=== PATIENT | female | born 1960 | race Caucasian/White ===

== ENCOUNTER → 2016-12-05 | Outpatient (CLI) | payer OTHER ==
[2016-12-05 08:55] LABS: Cholesterol 231 mg/dL (<200); HDL Cholesterol 56 mg/dL (40-60); Triglycerides 128 mg/dL (<150)
== END | disposition home or self-care (01) ==
LOC: LABWHC1 08:13
PROVIDERS: ATTEND Internal Medicine
DX: E78.4 Other hyperlipidemia (principal)
CPT/HCPCS: 36415; 80061

== ENCOUNTER → 2017-06-21 | Outpatient (CLI) | payer OTHER ==
[2017-06-21 09:28] LABS: CH 29.4; HCT 42.9 % (34.0-46.0); HDW 2.19; HGB 13.9 gm/dL (11.4-16.0); MCH 29.9 pg (25.0-35.0); MCHC 32.3 g/dL (31.0-37.0); MCV 92.4 fL (80.0-100.0); Mean Platelet Volume 7.5; RBC 4.64 m/uL (3.80-5.40); RDW 13.9 % (11.5-15.5); WBC 6.4 k/uL (3.8-10.6)
[2017-06-21 09:36] LABS: ALT 38 U/L (9-52); AST 20 U/L (14-36); Alkaline Phosphatase 84 U/L (38-126); Anion Gap 9 mmol/L; Blood Urea Nitrogen 16 mg/dL (7-17); Calcium 9.3 mg/dL (8.4-10.2); Carbon Dioxide 29 mmol/L (22-30); Chloride 106 mmol/L (98-107); Cholesterol 213 mg/dL (<200); Glucose 82 mg/dL (74-99); HDL Cholesterol 50 mg/dL (40-60); Non-African American GFR(MDRD) >60 (>60 ml/min/1.73 sqM); Potassium 4.5 mmol/L (3.5-5.1); Sodium 144 mmol/L (137-145); Total Bilirubin 0.4 mg/dL (0.2-1.3); Total Protein 6.7 g/dL (6.3-8.2); Triglycerides 103 mg/dL (<150)
== END | disposition home or self-care (01) ==
LOC: LABWHC1 08:38
PROVIDERS: ATTEND Internal Medicine
DX: E78.4 Other hyperlipidemia (principal); E87.8 Other disorders of electrolyte and fluid balance, not elsewhere classified; R53.83 Other fatigue
CPT/HCPCS: 36415; 80053; 80061; 85027

== ENCOUNTER → 2017-09-29 | Outpatient (CLI) | payer OTHER ==
--- NOTE | 2017-09-29 16:06 | BD ---
EXAMINATION TYPE: MG DEXA axial skeleton. DATE OF EXAM: 09/29/2017 COMPARISON: NONE CLINICAL HISTORY: post menopausal Height: 5'4 Weight: 138 FRAX RISK QUESTIONS: Alcohol (3 or more units per day): no Family History (Parent hip fracture): no Glucocorticoids (More than 3mos): no (Ex: prednisone, prednisolone, methylprednisolone, dexamethasone, and hydrocortisone). History of Fracture in Adulthood: no Secondary Osteoporosis: 1. Type 1 Diabetes: no 2. Hyperthyroidism: no 3. Menopause before 45: no 4. Malnutrition: no 5. Chronic liver disease: no Rheumatoid Arthritis: no Current Tobacco Use: no RISK FACTORS HISTORY OF: Family History of Osteoporosis: Postmenopausal woman: MEDICATIONS: Additional Medications: xanax, Additional History: EXAM MEASUREMENTS: Bone mineral densitometry was performed using the [employer] System. Bone mineral density as measured about the Lumbar spine is: ----- L1-L4(G/cm2): 1.177 T Score Values are as follows: ----- L2: 0.0 ----- L3: 0.4 ----- L4: -0.3 ----- L1-L4: 0.0 Bone mineral density about the R hip (g/cm2): 0.813 Bone mineral density about the L hip (g/cm2): 0.828 T Score values are as follows: -----R Neck: -1.6 -----L Neck: -1.5 -----R Total: -0.6 -----L Total: -0.3 IMPRESSION: Osteopenia (T Score between -2.5 and -1) as noted by T score values: Rangel Hips There is slightly increased risk of fracture and the patient may be considered for treatment. Re-Screen 2-5 years. NOTE: T-SCORE=SD OF THE YOUNG ADULT MEAN.
--- NOTE | 2017-09-30 10:29 | MM ---
Reason for exam: screening (asymptomatic). Last mammogram was performed 2 years and 1 month ago. History: Patient is postmenopausal. Physical Findings: A clinical breast exam by your physician is recommended on an annual basis and results should be correlated with mammographic findings. MG Screening Mammo w CAD Bilateral CC and MLO view(s) were taken. Prior study comparison: September 10, 2015, bilateral MG screening mammo w CAD. September 02, 2009, bilateral screening mammogram free. There are scattered fibroglandular densities. Developing asymmetry in the right breast, questionably 2 sites. This finding is changed when compared with previous exams. ASSESSMENT: Incomplete: need additional imaging evaluation, BI-RAD 0 RECOMMENDATION: Special view mammogram of the right breast. If lesion persists on supplemental views, image directed ultrasound is recommended. [facility] will attempt to contact patient to return for supplemental views and ultrasound if indicated.
== END | disposition home or self-care (01) ==
LOC: RADMAMWWP 15:04
PROVIDERS: ATTEND Internal Medicine
DX: Z12.31 Encounter for screening mammogram for malignant neoplasm of breast (principal); M85.89 Other specified disorders of bone density and structure, multiple sites; Z78.0 Asymptomatic menopausal state
CPT/HCPCS: 77080; G0202

== ENCOUNTER → 2017-10-05 | Outpatient (CLI) | payer OTHER ==
--- NOTE | 2017-10-05 10:32 | MM ---
Reason for exam: additional evaluation requested from abnormal screening. Last mammogram was performed less than 1 month ago. History: Patient is postmenopausal. MG 3D Work Up W/Cad RT Spot compression CC, spot compression MLO, and ML view(s) were taken of the right breast. Prior study comparison: September 29, 2017, bilateral MG screening mammo w CAD. September 10, 2015, bilateral MG screening mammo w CAD. No distinct lesion persists on additional views. These results were verbally communicated with the patient and result sheet given to the patient on 10/05/17. ASSESSMENT: Benign, BI-RAD 2 RECOMMENDATION: Return to routine screening mammogram schedule for both breasts.
== END | disposition home or self-care (01) ==
LOC: RADMAMWWP 09:02
PROVIDERS: ATTEND Internal Medicine
DX: R92.8 Other abnormal and inconclusive findings on diagnostic imaging of breast (principal); Z85.3 Personal history of malignant neoplasm of breast; Z80.3 Family history of malignant neoplasm of breast
CPT/HCPCS: G0206; G0279

== ENCOUNTER → 2018-07-16 | Outpatient (CLI) | payer OTHER ==
[2018-07-16 09:58] LABS: HCT 43.6 % (34.0-46.0); HGB 13.8 gm/dL (11.4-16.0); MCHC 31.7 g/dL (31.0-37.0); MCV 91.4 fL (80.0-100.0); Mean Platelet Volume 7.1; Platelet Count 322 k/uL (150-450); RBC 4.77 m/uL (3.80-5.40); RDW 13.7 % (11.5-15.5); WBC 6.5 k/uL (3.8-10.6)
[2018-07-16 10:07] LABS: ALT 36 U/L (9-52); AST 24 U/L (14-36); Alkaline Phosphatase 78 U/L (38-126); Anion Gap 6 mmol/L; Blood Urea Nitrogen 14 mg/dL (7-17); Calcium 9.3 mg/dL (8.4-10.2); Carbon Dioxide 30 mmol/L (22-30); Chloride 106 mmol/L (98-107); Cholesterol 212 mg/dL (<200); Glucose 85 mg/dL (74-99); HDL Cholesterol 48 mg/dL (40-60); LDL Cholesterol,Calculated 143 mg/dL (0-99); Potassium 4.3 mmol/L (3.5-5.1); Sodium 142 mmol/L (137-145); Total Bilirubin 0.5 mg/dL (0.2-1.3); Total Protein 6.7 g/dL (6.3-8.2); Triglycerides 104 mg/dL (<150)
== END | disposition home or self-care (01) ==
LOC: LABWHC1 09:33
PROVIDERS: ATTEND Internal Medicine
DX: E87.8 Other disorders of electrolyte and fluid balance, not elsewhere classified (principal); E78.4 Other hyperlipidemia; R53.83 Other fatigue
CPT/HCPCS: 36415; 80053; 80061; 85027

== ENCOUNTER → 2018-12-17 | Outpatient (CLI) | payer OTHER | END | disposition home or self-care (01) | LOC: LABWHC1 09:59 | PROVIDERS: ATTEND Internal Medicine | DX: E78.2 Mixed hyperlipidemia (principal) | CPT/HCPCS: 36415; 80061 ==

== ENCOUNTER → 2019-06-30 | Outpatient (CLI) | payer OTHER ==
--- NOTE | 2019-07-03 10:14 | MM ---
Reason for exam: screening (asymptomatic). Last mammogram was performed 1 year and 9 months ago. History: Patient is postmenopausal. Physical Findings: A clinical breast exam by your physician is recommended on an annual basis and results should be correlated with mammographic findings. MG Screening Mammo w CAD Bilateral CC and MLO view(s) were taken. Prior study comparison: October 05, 2017, right breast MG 3d work up w/cad RT. September 29, 2017, bilateral MG screening mammo w CAD. The breast tissue is heterogeneously dense. This may lower the sensitivity of mammography. There is no discrete abnormality. No significant changes when compared with prior studies. ASSESSMENT: Negative, BI-RAD 1 RECOMMENDATION: Routine screening mammogram of both breasts in 1 year.
== END | disposition home or self-care (01) ==
LOC: RADMAMWWP 16:09
PROVIDERS: ATTEND Internal Medicine
DX: Z12.31 Encounter for screening mammogram for malignant neoplasm of breast (principal)
CPT/HCPCS: 77067

== ENCOUNTER → 2020-03-27 | Outpatient (CLI) | payer OTHER | END | disposition home or self-care (01) | LOC: LABWHC1 12:33 | PROVIDERS: ATTEND Family Medicine | DX: Z20.828 Contact with and (suspected) exposure to other viral communicable diseases (principal) | CPT/HCPCS: 87635 ==

== ENCOUNTER → 2022-09-09 | Outpatient (CLI) | payer OTHER ==
--- NOTE | 2022-09-10 08:38 | MM ---
Reason for Exam: Screening (asymptomatic). Last mammogram was performed 3 year(s) and 2 month(s) ago. Patient History: Menarche at age 12. First Full-Term at age 22. Postmenopausal. Risk Values: Vianey 5 year model risk: 1.4%. NCI Lifetime model risk: 6.2%. Prior Study Comparison: 09/29/2017 Bilateral Screening Mammogram, [facility]. 10/05/2017 Right Diagnostic Mammogram, [facility]. 06/30/2019 Bilateral Screening Mammogram, [facility]. Tissue Density: The breast tissue is heterogeneously dense. This may lower the sensitivity of mammography. Findings: Analyzed By CAD. There is no suspicious group of microcalcifications or new suspicious mass in either breast. No significant change from prior examinations. Overall Assessment: Negative, BI-RAD 1 Management: Screening Mammogram of both breasts in 1 year. A clinical breast exam by your physician is recommended on an annual basis and results should be correlated with mammographic findings. Electronically signed and approved by: Joaquim Begum D.O.
== END | disposition home or self-care (01) ==
LOC: RADMAMWWP 14:31
PROVIDERS: ATTEND Family Medicine
DX: Z12.31 Encounter for screening mammogram for malignant neoplasm of breast (principal); Z78.0 Asymptomatic menopausal state
CPT/HCPCS: 77063; 77067

== ENCOUNTER 2023-10-08 09:10 | Day surgery (SDC) | payer OTHER ==
[2023-10-06 09:44] VITALS: BMI 23.3
[~2023-10-08 09:10] MED LIST: LACTATED RINGERS 1,000 ML IV SCH; LIDOCAINE 1% (10MG/ML) FOR IV START INTRADERMA PRN
[2023-10-08 10:02] VITALS: TEMP 98.3
[2023-10-08] MEDS ORDERED: PROPOFOL 10 MG/ML 20 ML VIAL IV ONE (11:09)
--- NOTE | 2023-10-08 11:21 | P.PCN ---
Date of Procedure: 10/08/23 Procedure(s) Performed: BRIEF HISTORY: Patient is a 62-year-old pleasant female scheduled for an elective colonoscopy as a part of screening for colon cancer. PROCEDURE PERFORMED: Colonoscopy with biopsy and snare polypectomy. PREOPERATIVE DIAGNOSIS: Screening for colon cancer. IV sedation per Anesthesia. PROCEDURE: After informed consent was obtained, the patient, was brought into the endoscopy unit. IV sedation was administered by Anesthesia under continuous monitoring. Digital rectal examination was normal. Initially the Olympus CF-160 flexible video colonoscope was then inserted in the rectum, gradually advanced into the cecum without any difficulty. Careful examination was performed as the scope was gradually being withdrawn. Ileocecal valve and the appendiceal orifice were visualized and appeared normal. Prep was excellent. Mucosa of the cecum, appeared normal. In the ascending colon there was a 3 mm sessile polyp removed by cold biopsy. Rest of the ascending colon, transverse colon, descending colon, appeared normal. Scattered sigmoid diverticula seen. In the distal sigm oid colon at 30 cm from the anal was there was a 7 mm polyp that was removed by snare polypectomy. Rest of the sigmoid colon, and rectum appeared normal. Retroflexion was performed in the rectum and no lesions were seen. The patient tolerated the procedure well. IMPRESSION: 3 mm ascending colon polyp status post cold biopsy 7 mm; sigmoid polyp status post polypectomy Scattered sigmoid diverticulosis RECOMMENDATIONS: Findings of this examination were discussed with the patient as well as a family.. She was advised to follow with the biopsy results. If the biopsy results adenoma she can have a repeat colonoscopy in 5 years.
[2023-10-08 11:48] VITALS: BP 133/80; PULSE 74; RESP 18
== END 2023-10-08 12:11 | disposition home or self-care (01) ==
LOC: ORWHC2ENDO 09:10
PROVIDERS: ATTEND Internal Medicine Gastroenterology
DX: Z12.11 Encounter for screening for malignant neoplasm of colon (principal); K63.5 Polyp of colon; K57.30 Diverticulosis of large intestine without perforation or abscess without bleeding; E78.5 Hyperlipidemia, unspecified; Z79.899 Other long term (current) drug therapy
CPT/HCPCS: 88305; 45380; 45385; J2704

== ENCOUNTER → 2024-05-03 | Outpatient (CLI) | payer OTHER ==
--- NOTE | 2024-05-03 18:03 | MR ---
EXAMINATION TYPE: MR shoulder RT wo con DATE OF EXAM: 05/03/2024 COMPARISON: None. HISTORY: Right shoulder pain with difficulty raising arm overhead for 1.5 years. TECHNIQUE: Multiplanar, multisequence imaging of the right shoulder is performed without contrast. FINDINGS: Rotator Cuff: Marked increased signal in the supraspinatus tendon beginning in the distal muscle bulk becoming more prominent distally. There is focal full-thickness tear at articular surface measuring 13 mm AP diameter sagittal image 6 x 4 mm transversely coronal image 12. Infraspinatus tendon is inta ct. Heterogeneity of the subscapularis tendon with surrounding fluid. Rotator cuff muscle bulk is pre served. Acromioclavicular Joint: Mild to moderate narrowing and spurring at the acromioclavicular joint. Ther e is loss of the underlying fat plane. Glenohumeral Joint: Moderate size joint effusion. No significant spurring. Narrowing is present great est inferiorly. Labrum: Blunted appearance to superior labrum with abnormal signal consistent with tear. Biceps Tendon: The long head of biceps is in normal location within bicipital groove. Intracapsular p ortion not well seen. Increased signal is present. Labral attachment is preserved. Bone marrow signal: Subchondral cystic change anteriorly. Other: No additional significant abnormality is appreciated. IMPRESSION: 1. Superior labral tear. 2. Tendinosis of the supraspinatus tendon. Focal full-thickness tear at the articular surface is note d. 3. Tendinosis of the subscapularis tendon. 4. Tendinosis of the intracapsular portion of the long head of The biceps tendon. 5. Moderate degenerative changes are present as detailed above.
== END | disposition home or self-care (01) ==
LOC: RADMRIMAIN 14:29
PROVIDERS: ATTEND Orthopaedic Surgery Sports Medicine
DX: M19.011 Primary osteoarthritis, right shoulder (principal); M67.813 Other specified disorders of tendon, right shoulder; M25.561 Pain in right knee; R22.31 Localized swelling, mass and lump, right upper limb

== ENCOUNTER → 2024-10-17 | Outpatient (CLI) | payer OTHER ==
--- NOTE | 2024-10-20 12:47 | MM ---
Reason for Exam: Screening (asymptomatic). Last mammogram was performed 2 year(s) and 1 month(s) ago. Patient History: Menarche at age 12. First Full-Term at age 22. Postmenopausal. Patient has history of breast feeding. Risk Values: [place]y 5 year model risk: 1.4%. NCI Lifetime model risk: 5.8%. Prior Study Comparison: 09/29/2017 Bilateral Screening Mammogram, [facility]. 10/05/2017 Right Diagnostic Mammogram, [facility]. 06/30/2019 Bilateral Screening Mammogram, [facility]. 09/09/2022 Bilateral MG 3D screening mammo w/cad, [facility]. Tissue Density: The breasts are heterogeneously dense, which may obscure small masses. Findings: Analyzed By CAD. Nodular focal asymmetry central inner aspect of the right breast middle depth for which further evaluation is recommended. Otherwise, no significant change. Overall Assessment: Incomplete: need additional imaging evaluation, BI-RAD 0 Management: Special View Mammogram of the right breast. Diagnostic Breast Ultrasound of the right breast. [facility] will attempt to contact patient to return for supplemental views and ultrasound if indicated. [facility], , 10/20/2024 12:44 PM. Electronically signed and approved by: Sonido Craranza M.D. Radiologist
== END | disposition home or self-care (01) ==
LOC: RADMAMWWP 13:51
PROVIDERS: ATTEND Family Medicine
DX: Z12.31 Encounter for screening mammogram for malignant neoplasm of breast (principal); R92.333 Mammographic heterogeneous density, bilateral breasts; Z78.0 Asymptomatic menopausal state
CPT/HCPCS: 77063; 77067

== ENCOUNTER → 2024-10-30 | Outpatient (CLI) | payer OTHER ==
--- NOTE | 2024-10-30 14:38 | MM ---
Reason for Exam: Additional evaluation requested from abnormal screening. Last screening mammogram was performed less than 1 month ago. Patient History: Menarche at age 12. First Full-Term at age 22. Postmenopausal. Patient has history of breast feeding. Risk Values: Vianey 5 year model risk: 1.4%. NCI Lifetime model risk: 5.8%. Prior Study Comparison: 01/26/2000 Bilateral Screening Mammogram, [facility]. 12/15/2004 Bilateral Screening Mammogram, [facility]. 06/10/2006 Bilateral Screening Mammogram, [facility]. 09/02/2009 Bilateral Screening Mammogram, [facility]. 09/10/2015 Bilateral Screening Mammogram, [facility]. 09/29/2017 Bilateral Screening Mammogram, [facility]. 10/05/2017 Right Diagnostic Mammogram, [facility]. 06/30/2019 Bilateral Screening Mammogram, [facility]. 09/09/2022 Bilateral MG 3D screening mammo w/cad, [facility]. 10/17/2024 Bilateral MG 3D screening mammo w/cad, [facility]. Tissue Density: Right: There are scattered areas of fibroglandular density. Findings: Analyzed By CAD. There is persistent 0.5 cm density with partially circumscribed margins 5 to 6:00 position located 4 cm from the nipple. Additional evaluation with ultrasound is recommended. No significant interval. Overall Assessment: Incomplete: need additional imaging evaluation, BI-RAD 0 Management: Diagnostic Breast Ultrasound of the right breast. A negative mammogram report should not preclude additional follow up of suspicious palpable abnormalities. Patient should continue monthly self breast exam. A clinical breast exam by your physician is recommended on an annual basis and results should be correlated with mammographic findings. Note on Vianey scores and lifetime risk: 1. A Vianey score greater than 3% is considered moderate risk. If this is the case, consider specialist referral to assess eligibility for a risk reducing agent. 2. If overall lifetime risk for the development of breast cancer is 20% or higher, the patient may qualify for future screening with alternating mammogram and breast MRI. [facility], , 10/30/2024 2:35 PM. Electronically signed and approved by: Tan Art D.O. Radiologis
--- NOTE | 2024-10-30 16:04 | USB ---
Reason for Exam: Additional evaluation requested from abnormal screening. Patient History: Menarche at age 12. First Full-Term at age 22. Postmenopausal. Patient has history of breast feeding. Risk Values: Vianey 5 year model risk: 1.4%. NCI Lifetime model risk: 5.8%. Technique: Method: Targeted. Prior Study Comparison: 06/30/2019 Bilateral Screening Mammogram, [facility]. 09/09/2022 Bilateral MG 3D screening mammo w/cad, [facility]. 10/17/2024 Bilateral MG 3D screening mammo w/cad, [facility]. Findings: The lower inner quadrant of the right breast, the axilla of the right breast and the retroareolar of the right breast were scanned. There is a simple appearing cyst with through transmission and posterior wall enhancement measuring 0.7 x 0.3 x 0.6 cm 5:00 position 4 cm nipple. This correlates with the mammographic finding. Overall Assessment: Benign, BI-RAD 2 Management: Screening Mammogram of both breasts in 1 year. A clinical breast exam by your physician is recommended on an annual basis and results should be correlated with mammographic findings. This exam should not preclude additional follow-up of suspicious palpable abnormalities. Results were given to the patient verbally at the time of exam. [facility], , 10/30/2024 3:14 PM. Electronically signed and approved by: Tan Art D.O. Radiologis
== END | disposition home or self-care (01) ==
LOC: RADMAMWWP 13:47
PROVIDERS: ATTEND Family Medicine
DX: R92.8 Other abnormal and inconclusive findings on diagnostic imaging of breast (principal); R92.323 Mammographic fibroglandular density, bilateral breasts; Z78.0 Asymptomatic menopausal state
CPT/HCPCS: 77061; 77065

== ENCOUNTER → 2025-02-27 | Outpatient (CLI) | payer OTHER ==
--- NOTE | 2025-03-05 22:24 | P.PCN ---
Date of Procedure: 02/27/25 Operative Findings: Home sleep study Date of service is 02/27/2025 History 64-year-old female patient referred to me for large chronic snoring. The patient on examination had a mild overbite and she also has a nasal septal deviation and she is a mouth breather. Her chronic snoring is not associated with significant hypersomnia or sleepiness. The patient reported an [place] score of 4. Furthermore, the patient reported claustrophobia and she stated that she may not be able to tolerate any device should there be any need for treatment of obstructive sleep apnea. His sleep study was ordered to evaluate the presence of sleep apnea. No significant comorbidities other than hyperlipidemia and previous history of ADHD. Pertinent physical findings The weight is 148 pounds with a body mass index of 26.1 Technical description The [employer] system was used to complete his home sleep study. This is a type III home sleep study evaluation. The total recording duration was 7 hours and 41 minutes. The sleep study started at 9:19 PM and ended at 5 AM. There was a total of 7 hours and 21 minutes of flow monitoring and 7 hours and 29 minutes of oxygen saturation monitoring. Respiratory analysis The patient had a total of 119 obstructive apneas and 2025 obstructive hypopneas with resulting AHI of 46 consistent with severe obstructive sleep apnea. Oxygenation analysis The patient had a baseline pulse ox of 96% on room air oxygen. Average pulse ox during sleep was 90% with a minimum pulse ox of 73% and the patient spent approximately 1 hours and 45 minutes of the sleep time below pulse ox of 89%. Cardiac summary Average heart rate was 64 with a minimum heart rate of 49 and a maximum rate of 88 Assessment Severe symptomatic KATHLEEN with an AHI of 46.7 Severe electrolyte and saturation with a minimum pulse ox of 73% No daytime hypersomnia or sleepiness and the patient has a [place] score of 4 Overbite Nasal septal deviation History of ADHD Hyperlipidemia Claustrophobia Plan Patient should be an ideal candidate for CPAP therapy. CPAP therapy remains gold standard for case of severe symptomatic obstructive sleep apnea. Her claustrophobia may be an issue in making her treatment successful. Will discuss those findings with the patient and will come up with alternative plans if the patient decides not to undergo CPAP therapy.
== END ==
LOC: 3 N SLEEP 17:30
PROVIDERS: ATTEND Internal Medicine Critical Care Medicine
DX: G47.33 Obstructive sleep apnea (adult) (pediatric) (principal); J34.2 Deviated nasal septum; E78.5 Hyperlipidemia, unspecified; F40.240 Claustrophobia; Z86.59 Personal history of other mental and behavioral disorders

== ENCOUNTER 2025-06-05 19:29 | Outpatient (CLI) | payer OTHER ==
--- NOTE | 2025-06-07 22:32 | P.PCN ---
Date of Procedure: 06/05/25 Operative Findings: CPAP titration study Date of service is 06/07/2025 History This is a 64-year-old female patient diagnosed having severe KATHLEEN with an AHI of 46.7. The patient reported chronic loud snoring and she is known to have nasal septal deviation and she is a mouth breather. She has significant hypersomnia and sleepiness. She has issues with chronic claustrophobia. Other comorbidities include hyperlipidemia and ADHD Physical findings Weight is 149 pounds with a body mass index of 26.1 Technical description The patient was studied using a standard complex polysomnography protocol that included recording of the Lead II EKG, Central, occipital and frontal EEG, right and left outer canthus EOG, submental EMG, right and left anterior tibialis EMG, respiratory airflow by thermocouple and or pressure/flow transducer, respiratory efforts by abdominal and thoracic PVDF belts, oxygen saturation by cable oximetry. Position by observation synchronized the PSG. Equipment used: Convrrt. Stepwise CPAP titration was done to eliminate all obstructive respiratory events Sleep architecture The total recording duration was 389 minutes. The total sleep time was 308 minutes. The wake after sleep onset time was 63 minutes. The overall sleep FVC was 79.2%. The latency to sleep onset was 10 minutes. The latency to REM sleep was 15.5 minutes. The sleep architecture was characterized by 9.6% stage I, 69.3% stage II, 0.2% stage III and a total of 20.9% REM sleep. The total arousal index was 25.1. Respiratory analysis CPAP titration was done starting with a initial CPAP. Pressure of 7 cm of water and the pressure was gradually increased by increments of 1 cm to reach a maximum CPAP pressure of 19 cm of water. I carefully reviewed the CPAP titration taking account the patient's sleep stage and body position. Noted the patient was in a sideways body position throughout the study and all sleeps were encountered including REM sleep. The patient continues to have obstructive apneas and hypopneas at the various CPAP pressures used. Even at the higher CPAP pressure of 90 cm of water, the patient continued to have ongoing obstructive respiratory events with improvement in oxygenation especially at the higher CPAP pressures. Nevertheless, especially during REM sleep, the patient continued to have obstructive apneas. As such, the titration itself was not fully successful. Arousal events There was a total of 129 arousals with an index of 25.1. The respiratory arousal index was 4.1 Limb movements There was a total of 52 periodic limb movement activity with an index of 10.1. There was an additional 8 periodic limb movement with arousals with a PLM ar ousal index of 1.6 Cardiac summary Average heart rate was 62. Minimum heart rate of 58. Maximum heart rate of 67 Assessment Severe symptomatic KATHLEEN with an AHI of 46.7, suboptimal CPAP titration as the patient continue to encounter obstructive respiratory events elevated CPAP pressure is used. There was improvement in AHI. The treatment was not fully successful. No significant desaturations while being on CPAP therapy Severe electrolyte and saturation with a minimum pulse ox of 73% No daytime hypersomnia or sleepiness and the patient has a [place] score of 4 Overbite Nasal septal deviation History of ADHD Hyperlipidemia Claustrophobia Plan Will offer the patient an APAP machine. Will send the patient a pressure minimum of 7 and maximum of 20 with a C-Flex of 3. Will offer the patient AirFit F20 medium size fullface mask. The patient will do a short-term follow- up with me in the office to assess clinical response and compliancy. Will make further adjustments accordingly. Will monitor compliancy data. Optimize sleep hygiene measures. Maintain regular sleep schedule. Will continue to follow.
== END 2025-06-06 05:30 | disposition home or self-care (01) ==
LOC: 3 N SLEEP 19:29
PROVIDERS: ATTEND Internal Medicine Critical Care Medicine
DX: G47.33 Obstructive sleep apnea (adult) (pediatric) (principal); M26.29 Other anomalies of dental arch relationship; J34.2 Deviated nasal septum; E78.5 Hyperlipidemia, unspecified; F40.240 Claustrophobia; Z86.59 Personal history of other mental and behavioral disorders; Z99.89 Dependence on other enabling machines and devices
CPT/HCPCS: 95811